=== PATIENT | male | born 1965 | race Two or more races ===

== ENCOUNTER 2019-01-10 14:07 | Inpatient (IN) | payer OTHER ==
[2019-01-10] MEDS ORDERED: SODIUM CHLORIDE 0.9% 1,000 ML IV ONE (15:03)
--- NOTE | 2019-01-10 15:04 | ED ---
Skin/Abscess/FB HPI - General Chief complaint: Skin/Abscess/Foreign Body Stated complaint: Bug bite on arm Time Seen by Provider: 01/10/19 14:28 Source: patient Mode of arrival: ambulatory Limitations: no limitations - History of Present Illness Initial comments: 53-year-old male who denies any past medical history presenting today for chief complaint of bug bite with right upper extremity redness. Patient states that Tuesday he was bit by bugs sometime Tuesday night he had a small break in the skin of the right thumb near the MTP joint. Patient states there was surrounding erythema that spread up his arm. He states the redness extends to mid bicep. Patient states the rash is since spread to his right side of his trunk. Patient states he feels he was bit multiple times. Patient states the erythema seemed to spread rapidly. Patient denies any fever, chills, night sweats. Patient denies any specific contacts, recent travel. Patient denies history of MRSA. NO KNOWN DRUG ALLERGIES. Upon arrival remaining review of systems negative, patient denies any recent shortness of breath, chest pain, back pain, abdominal pain, nausea or vomiting, numbness or tingling, dysuria or hematuria, constipation or diarrhea, headaches or visual changes, or any other complaints. Vital signs revealed elevation of heart rate and blood pressure. Patient afebrile. Patient does not appear toxic. - Related Data Home Medications Medication Instructions Recorded Confirmed No Known Home Medications 01/10/19 01/10/19 Allergies Allergy/AdvReac Type Severity Reaction Status Date / Time No Known Allergies Allergy Verified 01/10/19 16:40 Review of Systems ROS Statement: Those systems with pertinent positive or pertinent negative responses have been documented in the HPI. ROS Other: All systems not noted in ROS Statement are negative. Past Medical History Past Medical History: No Reported History Past Surgical History: No Surgical Hx Reported Past Psychological History: No Psychological Hx Reported Smoking Status: Former smoker Past Alcohol Use History: Occasional Past Drug Use History: Marijuana General Exam - General Exam Comments Initial Comments: General: The patient is awake and alert, in no distress, and does not appear acutely ill. Eye: +3 mm pupils are equal, round and reactive to light, extra-ocular movements are intact. No nystagmus. There is normal conjunctiva bilaterally. No signs of icterus. Ears, nose, mouth and throat: There are moist mucous membranes and no oral lesions. Neck: The neck is supple, there is no tenderness or JVD. Cardiovascular: There is a regular rate and rhythm. No murmur, rub or gallop is appreciated. Respiratory: Lungs are clear to auscultation, respirations are non-labored, breath sounds are equal. No wheezes, stridor, rales, or rhonchi. Gastrointestinal: Soft, non-distended, non-tender abdomen without masses or organomegaly noted. There is no rebound or guarding present. No CVA tenderness. Bowel sounds are unremarkable. Musculoskeletal: Normal ROM, no tenderness. Strength 5/5. Sensation intact. Radial pulses equal bilaterally 2+. Neurological: A&O x 3. CN II-XII intact, There are no obvious motor or sensory deficits. Coordination appears grossly intact. Speech is normal. Skin: Skin is warm and dry. Soft tissue erythema of the RUE from base of right thumb to the right mid bicep. There is small raised lesions near right elbow. Pt has edema of the right UE, just proximal to elbow. There is raised erythematous area of right trunk/flank. no crepitus to palpation. No palpable fluctuance. Psychiatric: Cooperative, appropriate mood & affect, normal judgment. Limitations: no limitations Course Vital Signs 01/10/19 01/10/19 01/10/19 14:12 17:40 19:10 Temperature 98.7 F 98.8 F Pulse Rate 104 H 86 82 Respiratory 18 18 18 Rate Blood Pressure 173/93 169/80 145/75 O2 Sat by Pulse 98 95 98 Oximetry Medical Decision Making - Medical Decision Making 53-year-old male with no comorbidities presents today for chief complaint of erythema of the right upper extremity. Physical examination revealed areas consistent with possible insect bites. There is surrounding cellulitis no evidence of crepitus or palpable abscess. CT of the soft tissues of the pain revealing no evidence of free air, with findings consistent with cellulitis. Patient is no leukocytosis, lactic acid within normal limits. Patient does not appear overtly septic. Pt started on vancomycin and ceftriaxone given rapid spread of erythema over the course of 2 days. Patient was evaluated in person by attending provider Dr. García, who agreed with the impression and plan as well as admission for IV antibiotic therapy. Admission accepted by Dr. Salvador, discussed the case in detail with attending provider Dr. García. No further orders. Patient transferred to the floor in stable condition appearing well agreeable with plan as well as admission. No further questions - Lab Data Result diagrams: 01/10/19 15:19 01/10/19 15:19 Lab Results 01/10/19 01/10/19 01/10/19 Range/Units 15:19 15:19 15:19 WBC 5.3 (3.8-10.6) k/uL RBC 4.81 (4.30-5.90) m/uL Hgb 14.2 (13.0-17.5) gm/dL Hct 42.9 (39.0-53.0) % MCV 89.3 (80.0-100.0) fL MCH 29.5 (25.0-35.0) pg MCHC 33.0 (31.0-37.0) g/dL RDW 12.4 (11.5-15.5) % Plt Count 255 (150-450) k/uL Neutrophils % 66 % Lymphocytes % 25 % Monocytes % 5 % Eosinophils % 3 % Basophils % 0 % Neutrophils # 3.5 (1.3-7.7) k/uL Lymphocytes # 1.3 (1.0-4.8) k/uL Monocytes # 0.2 (0-1.0) k/uL Eosinophils # 0.2 (0-0.7) k/uL Basophils # 0.0 (0-0.2) k/uL Sodium 142 (137-145) mmol/L Potassium 4.7 (3.5-5.1) mmol/L Chloride 106 (98-107) mmol/L Carbon Dioxide 26 (22-30) mmol/L Anion Gap 10 mmol/L BUN 15 (9-20) mg/dL Creatinine 1.04 (0.66-1.25) mg/dL Est GFR (CKD-EPI)AfAm >90 (>60 ml/min/1.73 sqM) Est GFR (CKD-EPI)NonAf 81 (>60 ml/min/1.73 sqM) Glucose 106 H (74-99) mg/dL Plasma Lactic Acid Vernon 1.3 (0.7-2.0) mmol/L Calcium 9.3 (8.4-10.2) mg/dL Total Bilirubin 1.0 (0.2-1.3) mg/dL AST 29 (17-59) U/L ALT 50 (21-72) U/L Alkaline Phosphatase 88 (38-126) U/L Total Protein 8.0 (6.3-8.2) g/dL Albumin 4.4 (3.5-5.0) g/dL Disposition Clinical Impression: Cellulitis of right upper extremity, Cellulitis of trunk Disposition: ADMITTED IP TO THIS [facility] Condition: Good Is patient prescribed a controlled substance at d/c from ED?: No Time of Disposition: 17:08 Decision to Admit Reason: Admit from EC Decision Date: 01/10/19 Decision Time: 17:08
[2019-01-10] MEDS ORDERED: VANCOMYCIN IV PER PHARMACY 1 EACH MISC MISCELLANE PRN (15:10)
[2019-01-10] MEDS ORDERED: VANCOMYCIN 2,000 MG in SODIUM CHLORIDE 0.9% 500 ML 500 ML IVPB STA (15:19)
[2019-01-10 15:44] LABS: Basophils % (A) 0 %; Eosinophils # (A) 0.2 k/uL (0-0.7); Eosinophils % (A) 3 %; HCT 42.9 % (39.0-53.0); HGB 14.2 gm/dL (13.0-17.5); Lymphocytes # (A) 1.3 k/uL (1.0-4.8); Lymphocytes % (A) 25 %; MCH 29.5 pg (25.0-35.0); MCV 89.3 fL (80.0-100.0); Mean Platelet Volume 6.4; Monocytes # (A) 0.2 k/uL (0-1.0); Monocytes % (A) 5 %; Neutrophils # (A) 3.5 k/uL (1.3-7.7); Neutrophils % (A) 66 %; Platelet Count 255 k/uL (150-450); RBC 4.81 m/uL (4.30-5.90); RDW 12.4 % (11.5-15.5); WBC 5.3 k/uL (3.8-10.6)
[2019-01-10 16:08] LABS: ALT 50 U/L (21-72); AST 29 U/L (17-59); Albumin 4.4 g/dL (3.5-5.0); Alkaline Phosphatase 88 U/L (38-126); Anion Gap 10 mmol/L; Blood Urea Nitrogen 15 mg/dL (9-20); Calcium 9.3 mg/dL (8.4-10.2); Carbon Dioxide 26 mmol/L (22-30); Chloride 106 mmol/L (98-107); Glucose 106 mg/dL (74-99); Potassium 4.7 mmol/L (3.5-5.1); Sodium 142 mmol/L (137-145)
--- NOTE | 2019-01-10 17:01 | CT ---
EXAMINATION TYPE: CT upper extremity RT w con DATE OF EXAM: 01/10/2019 COMPARISON: None HISTORY: Arm pain CT DLP: mGycm Automated exposure control for dose reduction was used. CONTRAST: Performed , patient injected with mL of . The contrast was Isovue 100 mL. FINDINGS: Multiple axial sections were obtained from the glenohumeral joint to the distal radius with intraveno us contrast. There is normal contrast opacification of the brachial artery and vein. There is subcutaneous edema o n the posterior aspect of the distal humerus and the posterior aspect of the forearm. There is no dis crete fluid collection. There is no evidence of soft tissue type mass. I see no bony destructive proc ess. There is no evidence of elbow joint effusion. Elbow joint spaces appear normal. I see no evidenc e of osteomyelitis. There is mild spurring on the olecranon process of the ulna. IMPRESSION: SUBCUTANEOUS EDEMA OVER THE POSTERIOR ARM CONSISTENT WITH CELLULITIS. NO DISCRETE ABSCESS SEEN. NO EV IDENCE OF OSTEOMYELITIS.
[2019-01-10] MEDS ORDERED: NALOXONE 0.4 MG/ML 1 ML VIAL IV PRN (17:12)
[2019-01-10] MEDS: SODIUM CHLORIDE 0.9% 1,000 ML IV SCH (18:03)
--- NOTE | 2019-01-10 18:15 | P.HPIM ---
History of Present Illness H&P Date: 01/10/19 Chief Complaint: Right upper extremity swelling and redness The patient is a 53-year-old -[place] male without any significant past medical history that presents to the ER with chief complaint of right upper extremity redness and swelling and pain. Apparently the patient noticed redness and swelling 3 days ago beginning on the back of his right hand and right arm by his elbow and right trunk area, the patient suspects that he was possibly bitten by an insect. Over the past few days the patient has noticed increasing swelling and redness and warmth, reports that the pain is mild and tolerable, he denies any history of MRSA or IV drug abuse. He denies any subjective fevers chills or night sweats. The patient denies any ALLERGIES to any medications. In the ER the patient had routine labs drawn he had no noted leukocytosis or bandemia and he was started on vancomycin and Rocephin recommended for observation Review of Systems Pertinent positives per HPI all other systems otherwise negative Past Medical History Past Medical History: No Reported History Past Surgical History: No Surgical Hx Reported Past Psychological History: No Psychological Hx Reported Smoking Status: Former smoker Past Alcohol Use History: Occasional Past Drug Use History: Marijuana Medications and Allergies Home Medications Medication Instructions Recorded Confirmed Type No Known Home Medications 01/10/19 01/10/19 History Allergies Allergy/AdvReac Type Severity Reaction Status Date / Time No Known Allergies Allergy Verified 01/10/19 16:40 Physical Exam Vitals: Vital Signs Temp Pulse Resp BP Pulse Ox 01/10/19 17:40 86 18 169/80 95 01/10/19 14:12 98.7 F 104 H 18 173/93 98 Intake and Output 01/10/19 01/10/19 01/10/19 06:59 14:59 22:59 Other: Weight 97.522 kg Constitutional: No acute distress, conversant, pleasant Eyes: Anicteric sclerae, moist conjunctiva, no lid-lag, PERRLA ENMT: NC/AT,Oropharynx clear, no erythema, exudates Neck:Supple, FROM, no masses, or JVD, No carotid bruits; No thyromegaly Lungs: Clear to auscultation, Clear to percussion, Normal respiratory effort, no accessory muscle use Cardiovascular: Heart regular in rate and rhythm, No murmurs, gallops, or rubs no peripheral edema Abdominal: Soft Nontender, nom distended, no guarding, no rebound or rigidity, Normoactive bowel sounds No hepatomegaly, No splenomegaly, No palpable mass No abdominal wall hernia noted Skin: Normal temperature, tone, texture, turgor, No induration No subcutaneous nodules, No rash, lesions, No ulcers Extremities: Noted induration posterior right arm above his elbow with noted erythema and warmth, also a few scattered areas on the right side of his trunk with noted induration and warmth and erythema, no palpable fluctuance noted Psychiatric: Alert and oriented to person, place and time, Appropriate affect Intact judgement Neuro: Muscles Strength 5/5 in all 4 extremities, Sensation to light touch grossly present throughout, Cranial nerves II-XII grossly intact. No focal sensory deficits Results CBC & Chem 7: 01/10/19 15:19 01/10/19 15:19 Labs: Abnormal Lab Results - Last 24 Hours (Table) 01/10/19 Range/Units 15:19 Glucose 106 H (74-99) mg/dL Assessment and Plan (1) Cellulitis of right upper extremity Current Visit: Yes Status: Acute Code(s): L03.113 - CELLULITIS OF RIGHT UPPER LIMB SNOMED Code(s): 772231948 (2) Cellulitis of trunk Current Visit: Yes Status: Acute Code(s): L03.319 - CELLULITIS OF TRUNK, UNSPECIFIED SNOMED Code(s): 52816637 Plan: Patient placed on observation with right upper extremity and right trunk cellulitis presumably place secondary infection after having insect bite, there is some noted induration around the eye for mentioned areas but no fluctuance suggestive of abscess of any kind. Right upper extremity CT was consistent with subcutaneous edema over the posterior arm consistent with cellulitis with no discrete abscess seen, no evidence of osteomyelitis. The patient is afebrile without leukocytosis agree with continuing IV antibiotics. I will continue to follow his clinical course. CODE STATUS full code Anticipated discharge 1-2 days DVT prophylaxis patient ambulatory
[2019-01-10] MEDS ORDERED: ONDANSETRON 4 MG/2 ML VIAL IVP PRN (18:27)
[2019-01-10] MEDS ORDERED: ACETAMINOPHEN TAB 325 MG TAB PO PRN (18:27)
[2019-01-10] MEDS ORDERED: MELATONIN 3 MG TABLET PO PRN (18:27)
[2019-01-10] MEDS ORDERED: cloNIDine HCL 0.1 MG TAB PO PRN (20:30)
[2019-01-11] MEDS ORDERED: VANCOMYCIN 1,750 MG in SODIUM CHLORIDE 0.9% 500 ML 500 ML IVPB SCH (06:00)
[2019-01-11] MEDS ORDERED: HYDROCHLOROTHIAZIDE 25 MG TAB PO SCH (09:00)
[2019-01-11] MEDS: SODIUM CHLORIDE 0.9% 1,000 ML IV SCH (14:23)
[2019-01-11] MEDS ORDERED: amLODIPine 10 MG TAB PO SCH (14:30)
[2019-01-11 15:24] VITALS: BP 162/84; PULSE 61; RESP 14; TEMP 98.7
--- NOTE | 2019-01-11 15:37 | P.DS ---
Providers Date of admission: 01/10/19 17:16 Expected date of discharge: 01/11/19 Attending physician: Gonzales Salvador MD Primary care physician: Stated None - Discharge Diagnosis(es) (1) Cellulitis of right upper extremity Current Visit: Yes Status: Acute (2) Cellulitis of trunk Current Visit: Yes Status: Acute (3) Essential hypertension Current Visit: Yes Status: Acute Hospital Course: the patient is a 53-year-old -Citizen Of [place] male that was admitted for right posterior arm and trunk cellulitis after presenting with a erythematous indurated rash and was warm to touch on the aforementioned areas. The patient h ad no signs of sepsis no fever no white count, he was started on empiric IV antibiotics with IV vancomycin and Rocephin, patient was noted to have elevated blood pressures consistently started on hydrochlorothiazide and Norvasc. Both treatment the patient's cellulitis gradually began receding, becoming less indurated and erythematous. He was subsequently discharged home in stable condition with a prescription for clindamycin, return precautions were provided. The patient was encouraged to establish PCP in the area to follow-up with his hypertension. This discharge process took approximately 30 minutes Focused exam derm : noted IMproving induration posterior right arm above his elbow with noted erythema also a few scattered areas on the right side of his trunk with noted induration and warmth and erythema, no palpable fluctuance note Patient Condition at Discharge: Good Plan - Discharge Summary Discharge Rx Participant: No New Discharge Prescriptions: New Clindamycin [Cleocin] 450 mg PO Q8HR #30 capsule Hydrochlorothiazide [Hydrodiuril] 25 mg PO DAILY #30 tab amLODIPine [Norvasc] 10 mg PO DAILY #30 tab Discharge Medication List Clindamycin [Cleocin] 450 mg PO Q8HR #30 capsule 01/11/19 [Rx] Hydrochlorothiazide [Hydrodiuril] 25 mg PO DAILY #30 tab 01/11/19 [Rx] amLODIPine [Norvasc] 10 mg PO DAILY #30 tab 01/11/19 [Rx] Follow up Appointment(s)/Referral(s): None,Stated [Primary Care Provider] - 1-2 days Discharge Disposition: HOME SELF-CARE
== END 2019-01-11 16:00 | disposition home or self-care (01) | DRG 603 ==
LOC: EC 14:07 → 4SSUR 17:16
PROVIDERS: ADMIT Family Medicine; ATTEND Family Medicine
DX: L03.113 Cellulitis of right upper limb (principal); L03.319 Cellulitis of trunk, unspecified; I10 Essential (primary) hypertension; S40.869A Insect bite (nonvenomous) of unspecified upper arm, initial encounter; Z87.891 Personal history of nicotine dependence; W57.XXXA Bitten or stung by nonvenomous insect and other nonvenomous arthropods, initial encounter
CPT/HCPCS: 36415; 80053; 83605; 85025; 87040; 96365; 96366; 96367; 99284